=== PATIENT | male | born 1990 | race Caucasian/White ===

== ENCOUNTER 2023-12-28 17:30 | Inpatient (IN) | payer OTHER ==
[~2023-12-28] VITALS: Ht 175.3 cm; Wt 91.3 kg
[2023-12-28 20:07] VITALS: BP 117/67; PULSE 62; RESP 20; TEMP 98.2; O2SAT 98
[2023-12-28 21:07] VITALS: BP 117/67; PULSE 62; RESP 22; TEMP 98.2; O2SAT 98
[2023-12-28] MEDS: diphenhdrAMINE HCL 50 MG/1 ML VL ONE (21:21)
[2023-12-28] MEDS: diphenhdrAMINE HCL 50 MG/1 ML VL IV PRN (21:45)
[2023-12-28] MEDS ORDERED: DEXT1LOZ10 MT (22:31)
[2023-12-28] MEDS ORDERED: GUAI600T78 PO (22:31)
[2023-12-28] MEDS ORDERED: IBUP-1456 PO (22:31)
[2023-12-28] MEDS ORDERED: HYDR-3682 PO (22:31)
[2023-12-28] MEDS ORDERED: ATOM25CA PO (22:31)
[2023-12-28] MEDS ORDERED: PANT40TA2 PO (22:31)
[2023-12-28] MEDS ORDERED: TRAZ-228 PO (22:31)
[2023-12-28] MEDS ORDERED: ACET-1881 PO (22:31)
[2023-12-29] VITALS (7 sets, daily range): BP systolic 110–147; BP diastolic 62–78; PULSE 68–78; RESP 18–22; TEMP 97.9–98.5; O2SAT 98–100
[2023-12-29] MEDS ORDERED: ONDANSETRON HCL 4 MG/2 ML VIAL IV PRN (02:00)
[2023-12-29] MEDS ORDERED: ACETAMINOPHEN 325 MG TAB PO PRN (02:00)
[2023-12-29] MEDS ORDERED: HYDROcodone-ACET 5/325MG TAB PO PRN (02:00)
[2023-12-29] MEDS ORDERED: MORPHINE SULFATE INJ 2 MG/ml SYRG IV PRN (04:15)
[2023-12-29 06:10] LABS: Basophils # (auto) 0.1 10 ^3/uL (0-0.2); Basophils % (auto) 0.4 % (0.0-2.0); Eosinophils # (auto) 0.3 10 ^3/uL (0-0.8); Eosinophils % (auto) 2.6 % (0.0-7.0); Hematocrit 44.3 % (41.0-53.0); Lymphocytes # (auto) 1.6 10 ^3/uL (0.4-5.4); Lymphocytes % (auto) 12.5 % (10.0-50.0); Mean Corpuscular Hemoglobin 28.1 pg (28.0-32.0); Mean Corpuscular Hgb Conc. 33.8 g/dL (32.0-36.0); Mean Corpuscular Volume 83.2 fL (80.0-100.0); Monocytes # (auto) 0.9 10 ^3/uL (0-1.3); Monocytes % (auto) 7.3 % (0.0-12.0); Neutrophils # (auto) 9.7 10 ^3/uL (1.6-8.6); Neutrophils % (auto) 77.2 % (37.0-80.0); Platelet Count (auto) 413 10^3/uL (140-450); Red Blood Cells 5.33 10^6/uL (4.5-5.90); Red Cell Distribution Width 13.6 % (11.8-14.3); White Blood Cell 12.6 10^3/uL (4.4-10.8)
[2023-12-29 06:12] LABS: Anion Gap 10 (5-15); Carbon Dioxide 24 mmol/L (20-30); Chloride 110 mmol/L (98-107); Potassium 3.8 mmol/L (3.5-5.1); Sodium 144 mmol/L (136-145)
[2023-12-29 06:13] LABS: Calcium 9.3 mg/dL (8.7-10.4)
[2023-12-29 06:18] LABS: BUN/Creatinine Ratio 11.1 (10.0-20.0); Blood Urea Nitrogen 11 mg/dL (9-23); Glucose 78 mg/dL (74-106)
[2023-12-29] MEDS: SODIUM CHLORIDE 0.9% 1,000 ML IV SCH (10:45)
[2023-12-29] MEDS ORDERED: ONDANSETRON HCL 4 MG/2 ML VIAL IV ONE (10:45)
[2023-12-29] MEDS ORDERED: MIDAZOLAM HCL 2MG/2ML 2ml VIAL (1mg/ml) ONE (10:55)
[2023-12-29] MEDS ORDERED: PROPOFOL 10 MG/ML 20 ML IV ONE (11:32)
[2023-12-29] MEDS ORDERED: ONDANSETRON HCL 4 MG/2 ML VIAL ONE (11:32)
[2023-12-29] MEDS: SUCRALFATE 1 GM/10 ML ORAL SUSP GT SCH (13:42)
[2023-12-29] MEDS ORDERED: PANTOPRAZOLE 40 MG/10 ML VIAL INJ IV SCH (22:00)
== END 2023-12-29 16:48 | disposition left against medical advice (07) | DRG 394 ==
LOC: WEST WING 19:50
PROVIDERS: ADMIT Internal Medicine; ATTEND Internal Medicine
PROC: 0DB68ZX Excision of Stomach, Via Natural or Artificial Opening Endoscopic, Diagnostic (ICD-10-PCS; 2023-12-29)
PROC: 0DB58ZX Excision of Esophagus, Via Natural or Artificial Opening Endoscopic, Diagnostic (ICD-10-PCS; 2023-12-29)
PROC: 0DB98ZX Excision of Duodenum, Via Natural or Artificial Opening Endoscopic, Diagnostic (ICD-10-PCS; principal; 2023-12-29 10:52)
DX: T18.128A Food in esophagus causing other injury, initial encounter (principal); K22.10 Ulcer of esophagus without bleeding; K44.9 Diaphragmatic hernia without obstruction or gangrene; K29.70 Gastritis, unspecified, without bleeding; Z91.041 Radiographic dye allergy status; W44.F3XA Food entering into or through a natural orifice, initial encounter; Y93.89 Activity, other specified; Y92.89 Other specified places as the place of occurrence of the external cause; Y99.8 Other external cause status
CPT/HCPCS: 36415; 71045; 80048; 85025; 87081; G0378; J2250; J2405; J2704